=== PATIENT | female | born 1980 | race Caucasian/White ===

== ENCOUNTER 2017-01-28 13:23 | Emergency (ER) | payer OTHER ==
[2017-01-28 15:10] LABS: HEMOGLOBIN 16.1 gm/dl (12.3-15.3); RED BLOOD COUNT 4.48 M/UL (4.00-5.10)
[2017-01-28 15:28] LABS: BUN/CREATININE RATIO 10 (0-10)
== END 2017-01-28 17:30 | disposition home or self-care (01) ==
LOC: ER1 13:23
PROVIDERS: Emergency Medicine
DX: R10.9 Unspecified abdominal pain (principal); R11.2 Nausea with vomiting, unspecified; K43.9 Ventral hernia without obstruction or gangrene
CPT/HCPCS: 36415; 74022; 80053; 81001; 83690; 84703; 85025; 87077; 87086; 87186; 96374; 99284; J2405

== ENCOUNTER → 2017-02-13 | Outpatient (CLI) | payer OTHER | LOC: CT 14:30 | DX: R19.00 Intra-abdominal and pelvic swelling, mass and lump, unspecified site (principal); K43.9 Ventral hernia without obstruction or gangrene; K42.9 Umbilical hernia without obstruction or gangrene; Z90.49 Acquired absence of other specified parts of digestive tract; K76.0 Fatty (change of) liver, not elsewhere classified; K66.8 Other specified disorders of peritoneum | CPT/HCPCS: J7050; Q9962 ==